=== PATIENT | female | born 1995 | race Two or more races ===

== ENCOUNTER → 2024-04-17 | Outpatient (CLI) | payer BC, MEDICAID, SELFPAY ==
--- NOTE | 2024-04-17 12:30 | XR_ITS ---
Examination: Pelvic ultrasound, transabdominal, complete Technique: Transabdominal ultrasound of the pelvis performed using grayscale imaging Date and time of exam: April 17, 2024 1237 hours INDICATIONS: Infertility diagnosis 2 years ago FINDINGS: Uterus 7.7 x 3.7 x 4.9 cm Endometrial sign 0.9 cm No uterine mass or intrauterine gestation Right ovary 3.6 x 1.9 x 2.5 cm arterial flow Left ovary 2.5 x 1.6 x 2.1 cm arterial flow IMPRESSION: Negative examination
== END | disposition home or self-care (01) ==
LOC: CDIM 12:18
PROVIDERS: Referring Provider Obstetrics & Gynecology; Visit Provider Obstetrics & Gynecology
DX: N97.9 Female infertility, unspecified (principal)
CPT/HCPCS: 76856